=== PATIENT | male | born 1970 ===

== ENCOUNTER 2023-01-23 10:28 | Outpatient (OUT) | payer OTHER, SELFPAY | END 2023-01-23 10:29 | PROVIDERS: PCP Family Medicine; Visit Provider Surgery | DX: I87.311 Chronic venous hypertension (idiopathic) with ulcer of right lower extremity (principal); L97.811 Non-pressure chronic ulcer of other part of right lower leg limited to breakdown of skin | CPT/HCPCS: 29580 ==

== ENCOUNTER 2023-01-30 14:12 | Outpatient (OUT) | payer OTHER, SELFPAY | END 2023-01-30 14:13 | disposition home or self-care (01) | PROVIDERS: PCP Family Medicine; Visit Provider Surgery | DX: I87.311 Chronic venous hypertension (idiopathic) with ulcer of right lower extremity (principal); L97.811 Non-pressure chronic ulcer of other part of right lower leg limited to breakdown of skin; R60.0 Localized edema | CPT/HCPCS: 11042; 29580 ==

== ENCOUNTER 2023-02-06 08:31 | Outpatient (OUT) | payer OTHER, SELFPAY | END 2023-02-06 08:32 | LOC: WC 08:31 | PROVIDERS: PCP Family Medicine; Visit Provider Surgery | DX: I87.311 Chronic venous hypertension (idiopathic) with ulcer of right lower extremity (principal); L97.811 Non-pressure chronic ulcer of other part of right lower leg limited to breakdown of skin; R60.0 Localized edema | CPT/HCPCS: 29580 ==

== ENCOUNTER 2023-02-13 15:31 | Outpatient (OUT) | payer OTHER, SELFPAY | END 2023-02-13 15:32 | disposition home or self-care (01) | LOC: WC 15:32 | PROVIDERS: PCP Family Medicine; Visit Provider Surgery | DX: I87.311 Chronic venous hypertension (idiopathic) with ulcer of right lower extremity (principal); L97.811 Non-pressure chronic ulcer of other part of right lower leg limited to breakdown of skin; R60.0 Localized edema; N18.30 Chronic kidney disease, stage 3 unspecified; L81.9 Disorder of pigmentation, unspecified; I89.0 Lymphedema, not elsewhere classified; Z72.0 Tobacco use; I83.893 Varicose veins of bilateral lower extremities with other complications | CPT/HCPCS: 29580 ==

== ENCOUNTER 2023-02-20 13:34 | Outpatient (OUT) | payer OTHER, SELFPAY | END 2023-02-20 13:35 | disposition home or self-care (01) | LOC: WC 13:34 | PROVIDERS: PCP Family Medicine; Visit Provider Podiatrist Foot & Ankle Surgery | DX: I87.311 Chronic venous hypertension (idiopathic) with ulcer of right lower extremity (principal); L97.811 Non-pressure chronic ulcer of other part of right lower leg limited to breakdown of skin; R60.0 Localized edema; N18.30 Chronic kidney disease, stage 3 unspecified; L81.9 Disorder of pigmentation, unspecified; Z72.0 Tobacco use; I83.893 Varicose veins of bilateral lower extremities with other complications | CPT/HCPCS: 11042; 11045 ==

== ENCOUNTER 2023-02-27 14:12 | Outpatient (OUT) | payer OTHER, SELFPAY | END 2023-02-27 14:13 | disposition home or self-care (01) | LOC: WC 14:12 | PROVIDERS: PCP Family Medicine; Visit Provider Surgery | DX: R60.0 Localized edema (principal); I87.311 Chronic venous hypertension (idiopathic) with ulcer of right lower extremity; L97.811 Non-pressure chronic ulcer of other part of right lower leg limited to breakdown of skin | CPT/HCPCS: 29580; A6213 ==

== ENCOUNTER 2023-03-10 08:04 | Outpatient (OUT) | payer OTHER, SELFPAY | END 2023-03-10 08:05 | disposition home or self-care (01) | LOC: WC 08:05 | PROVIDERS: PCP Family Medicine; Visit Provider Surgery | DX: I87.311 Chronic venous hypertension (idiopathic) with ulcer of right lower extremity (principal); L97.811 Non-pressure chronic ulcer of other part of right lower leg limited to breakdown of skin; R60.0 Localized edema | CPT/HCPCS: 29580 ==

== ENCOUNTER 2023-03-17 08:16 | Outpatient (OUT) | payer OTHER, SELFPAY | END 2023-03-17 08:17 | disposition home or self-care (01) | LOC: WC 08:16 | PROVIDERS: PCP Family Medicine; Visit Provider Physician Assistant | DX: R60.0 Localized edema (principal); I87.311 Chronic venous hypertension (idiopathic) with ulcer of right lower extremity; L97.811 Non-pressure chronic ulcer of other part of right lower leg limited to breakdown of skin | CPT/HCPCS: 29580 ==

== ENCOUNTER 2024-07-06 10:03 | Outpatient (OUT) | payer OTHER, SELFPAY ==
--- NOTE | 2024-07-05 14:33 | V.VEINS.HP ---
Vital Signs 07/05/24 14:58 07/06/24 10:19 Height 6 ft 2 in Weight 192 kg BMI 54.3 BP 170/82 H BP Location Left Brachial BP Position Sitting BP Cuff Size Large Adult BP Source Automatic Cuff Respiration 22 H Pulse 60 Pulse Source Monitor Pulse Oximetry (%) 90 L Oxygen Delivery Method Room Air Comment The patient's blood pressure is elevated. Varicose Veins Patient is a 53 year old male in this day as a referral from [facility] secondary to slow healing bilateral leg ulcers. The ulcers occurred approximately a year ago and healed then reopened 2months ago. Patient currently achieves compression via bilateral leg unna boots. Patient states that he has experienced a spontaneous ulcer to right lower leg 6 years ago it took 5 years for the wound to finaly heal and it stayed healed for aproxmately 8 months then reopened 2 months ago and has not been able to close since then. Patient also had a wound to left lower leg spontaneous that comes and goes and is currently open for >2years. Patient has worn bilateral leg knee high compression stockings for >6 years. Currently patient is in uniboot for compression and wound care. Patient has had multiple vein procedures with Dr. Parker in [place], [place] which include failed laser of right GSV followed by successful glue procedure of right GSV along with injection sclerotherapy all to right leg. Patient has family history of varicose vein disease in maternal grandmother. Patient has history of P.E. Patient c/o bilateral leg pain, heaviness, and edema. Merrill Carter MD personally performed the services described in this documentation, as scribed by Jai Bo RN in my presence and it is both accurate and complete. Jai Carter RN, am scribing for, and in the presence of, Dr. Merrill Mims and in the presence of the patient. . thigh: bilateral (symptoms right leg > left leg), knee: bilateral, calf: bilateral, ankle: bilateral and granger: bilateral aching, burning, cramping and tender 4 >6 years Worsened in recent months: Yes standing elevating extremities, compression stockings, wraps and exercise Reports fatigue, heaviness, limb pain, edema and leg edema History of lower extremity trauma: No Superficial thrombophlebitis: Yes Family history of varicose veins: yes Has patient had previous lower extremity venous surgery: Yes Patient has previously received the following treatment(s) for lower extremity varicose veins: Reports vein ablation, foam therapy and laser therapy Does patient have a history of : not applicable Does patient intend to have future pregnancies: not applicable Has patient had lower extremity venous scan with relux testing: Yes Support hose used: Yes Problems walking or doing physical activity: Yes How does it affect you: can not walk any length of distance due to heaviness and pain Do you walk much: Yes Do you stand much: Yes Review of Systems ROS Status of ROS 10 or more systems reviewed and unremarkable except as noted in history and below Cardiovascular Reports: edema Integumentary/Breast Reports: itching, redness, skin pain, skin tenderness, skin swelling, non-healing lesion and changes in skin color Neurological Reports: weakness in extremities PFSH [facility] Medical History (Updated 07/06/24 @ 13:46 by Jai Bo) Varicose veins of bilateral lower extremities with pain ?I83.813 - Varicose veins of bilateral lower extremities with pain (ICD-10) Obesities, morbid ?E66.01 - Morbid (severe) obesity due to excess calories (ICD-10) Pulmonary emboli ?I26.99 - Other pulmonary embolism without acute cor pulmonale (ICD-10) Kidney failure ?N19 - Unspecified kidney failure (ICD-10) Hypertension ?I10 - Essential (primary) hypertension (ICD-10) Hyperlipidemia ?E78.5 - Hyperlipidemia, unspecified (ICD-10) Diabetes 1.5, managed as type 1 ?E13.9 - Other specified diabetes mellitus without complications (ICD-10) Lymphedema due to venous disease ?I89.0 - Lymphedema, not elsewhere classified (ICD-10) ?I99.9 - Unspecified disorder of circulatory system (ICD-10) Obesity ?E66.9 - Obesity, unspecified (ICD-10) Surgical History (Updated 07/05/24 @ 14:39 by Jai Bo) History of appendectomy ?Z90.49 - Acquired absence of other specified parts of digestive tract (ICD-10) H/O hernia repair ?Z98.890 - Other specified postprocedural states (ICD-10) ?Z87.19 - Personal history of other diseases of the digestive system (ICD-10) Family History (Updated 07/06/24 @ 10:45 by Jai Bo) Other Family history of cancer Heart disease Pain due to varicose veins of both lower extremities Meds Home Medications and Allergies Home Medications ?Medication ?Instructions ?Recorded ?Confirmed ?Type apixaban 5 mg tablet (Eliquis) 5 mg PO BID 07/05/24 07/05/24 History atorvastatin 10 mg tablet 10 mg PO DAILY 07/05/24 07/05/24 History bumetanide 1 mg tablet 1 mg PO DAILY 07/05/24 07/05/24 History cyclobenzaprine 10 mg tablet 10 mg PO TID 07/05/24 07/05/24 History gabapentin 400 mg capsule 400 mg PO TID 07/05/24 07/05/24 History lisdexamfetamine 70 mg capsule 70 mg PO DAILY 07/05/24 07/05/24 History metolazone 5 mg tablet 5 mg PO DAILY 07/05/24 07/05/24 History metoprolol tartrate 50 mg tablet 50 mg PO BID 07/05/24 07/05/24 History (Lopressor) Allergies Allergy/AdvReac Type Severity Reaction Status Date / Time metformin Allergy Intermediate Dizziness Verified 07/05/24 14:44 Exam Narrative Exam Narrative: Merrill Carter MD personally performed the services described in this documentation, as scribed by Jai Bo RN in my presence and it is both accurate and complete. Jai Carter RN, am scribing for, and in the presence of, Dr. Merrill Mims and in the presence of the patient. Constitutional Documenting provider has reviewed patient's vital signs: yes Common normals: oriented x3 Nutritional appearance: overweight Cardio Peripheral pulses: posterior tibial pulses present and dorsalis pedis pulses present Extremity Common normals: normal capillary refill General: calf tenderness and edema Right lower extremity: lower leg Right lower leg: inspection and palpation Left lower extremity: lower leg Left lower leg: inspection and palpation Neuro Common normals: oriented x3 Results Additional Findings Additional findings: Bilateral leg reflux u/s reveals incompetent bilateral great and anterior accessory saphenous veins along with left small saphenous vein and right perforating vein with associated dilation and lastly bilateral leg branch saphenous truncal tributary varicosites. Merrill Carter MD personally performed the services described in this documentation, as scribed by Jai Bo RN in my presence and it is both accurate and complete. Jai Carter RN, am scribing for, and in the presence of, Dr. Merrill Mims and in the presence of the patient. Assessment and Plan Assessment and Plan (1) Varicose veins of bilateral lower extremities with pain: Plan Plan is for patient to continue use of bilateral leg compression, rest, elevate bilateral legs/feet. Smoking cessation. Patient to return for EVLTs of bilateral GSV, AAS, along with right SSV and peroforating veins. Once EVLT's complete, move forward with microfoam chemical ablation bilateral leg branch saphenous, truncal, tributary veins. I, Merrill Mims MD personally performed the services described in this documentation, as scribed by Jai Bo RN in my presence and it is both accurate and complete. I, Jai Bo RN, am scribing for, and in the presence of, Dr. Merrill Mims and in the presence of the patient.
[2024-07-05 14:58] VITALS: BMI 54.3
--- NOTE | 2024-07-05 14:59 | P.DS_ITS ---
Discharge Plan Discharge Disposition: Home, Self-Care Outpatient Diagnostics: VC Endovenous Ablation 1VeinRT (Routine) Timeframe: 2 Weeks Facility: [facility] - Location: [facility] Ordered By: Merrill Mims Plan of Treatment: EVLT of right GSV Patient Instructions: Endovenous Ablation (GEN) Print Language: Yoruba Discharge Date/Time: 07/06/24 13:47
[2024-07-06 10:19] VITALS: BP 170/82; PULSE 60; O2SAT 90
--- NOTE | 2024-07-06 10:24 | VEIN_ITS ---
Patient Name: YAMILE BARBA MR#: [id number] : 1970 Exam Date: 07/06/2024 Ordering Doctor: DR MERRILL MIMS M.D. RADIOLOGY REPORT PROCEDURE: [facility] - OFFICE VISIT INITIAL COMPARISON: None. PROGRESS NOTES: 53-year-old male who is referred by the [facility] secondary to nonhealing ulcerations for approximately 6 years. The patient has intermittent healing but the current wounds are proximally 2 to 3-month-old and closure has not occurred. The patient has had multiple treatments in the last by vascular surgery in [place]. He did not complete his treatments previously due to insurance issues. 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 The patient has worn compression wraps for many years. The patient has no significant relief with leg elevation and is unable to exercise due to morbid obesity and condition of his feet and legs. The patient denies any signs and symptoms to suggest arterial ischemia. The patient describes a family history of cancer, heart disease and varicose veins. Past surgical history significant for appendectomy and hernia repair. Medical history significant for morbid obesity, pulmonary embolus, kidney failure, hypertension, hyperlipidemia, diabetes and lymphedema. No history of deep vein thrombus. See separate history and physical for medication list. After review of nurse notes, history and physical exam I discussed at length the pathophysiology of venous hypertension and possible treatments, therapies and strategies available. We discussed at length the importance of elevating the lower extremities above the level of the heart, increased physical activity and compression stocking use. I recommended the patient that he start treatments immediately. We discussed intravenous laser ablation, micro foam chemical ablation and injection sclerotherapy at length. Risks benefits and alternatives were discussed with the patient and all his questions were answered. Ultrasound venous reflux study performed same day was discussed at length with the patient. The report demonstrates severe bilateral great saphenous veins insufficiency with dilatation saphenofemoral junction reflux. Severe right and moderate left small saphenous vein venous insufficiency with dilatation and saphenopopliteal junction reflux. Moderate bilateral anterior accessory saphenous vein venous insufficiency with dilatation. Bilateral incompetent perforating veins with associated wounds. Bilateral incompetent varicose veins measuring up to 10.7 mm PHYSICAL EXAM: The right leg demonstrates extensive varicose reticular and spider veins throughout the leg ankle foot and toes. Marked skin thickening erythema and hemosiderin staining below the knee. Extensive ulcerations below the including the ankle and top of the 2nd and 3rd toes The left leg demonstrates extensive varicose, reticular and spider veins throughout the leg, ankle, foot and toes. Marked skin thickening erythema in hemosiderin staining. Several small ulcerations. Both thighs, legs and feet were symmetrically warm to the touch. posterior tibial and dorsalis pedis pulses be palpated. VEIN/VC Facility EST Comprehensive IMPRESSION: 1. Diffuse bilateral great, anterior accessory and small saphenous vein venous insufficiency with dilatation 2. Extensive bilateral lower extremity varicose veins 3. Extensive bilateral lower extremity subcutaneous edema 4. Indeterminate flow significant arterial disease 5. CEAP: C6, Ep, Asp, Pr PLAN: 1. Endovenous laser ablation of the right great saphenous vein followed by right perforating veins followed by right small saphenous vein followed by left great saphenous vein followed by left small saphenous vein followed by right anterior accessory saphenous vein followed by left anterior accessory saphenous vein 2. Micro foam chemical ablation bilateral incompetent varicose veins 3. Long-term use of bilateral compression wraps 4. Weight loss 5. Leg elevation and increased physical activity Nurse notes, history and physical were reviewed and confirmed, see attached forms. The nurse was present throughout the physical exam and consultation Dictated by: Merrill Mims MD on 07/06/2024 at 12:05 Approved by: Merrill Mims MD on 07/06/2024 at 13:08
--- NOTE | 2024-07-06 10:24 | VEIN_ITS ---
Patient Name: YAMILE BARBA MR#: [id number] : 1970 Exam Date: 07/06/2024 Ordering Doctor: DR MERRILL MIMS M.D. RADIOLOGY REPORT PROCEDURE: VC EXT VENOUS REFLUX LETICIA LMTD COMPARISON: None. INDICATIONS: I83.813 Bilateral painful varicose veins TECHNIQUE: Duplex imaging of the lower extremity to assess the deep and superficial venous system for the presence of deep or superficial venous incompetence and to document the location and severity of disease. The study includes evaluation of the great saphenous vein (GSV), anterior accessory saphenous vein (AASV) and small saphenous vein (SSV). Patient scanned in reverse Trendelenburg and standing. FINDINGS: RIGHT LOWER EXTREMITY: Saphenofemoral Junction Reflux: Yes 17.6mm 3.9 sec GSV: Diam (mm) Reflux/ Time (sec) Proximal Thigh 13.5 Yes 3.6 Mid Thigh 12.7 Yes 3.2 Distal Thigh N/A Prox Calf N/A Mid Calf 7.5 Yes 2.8 Saphenopopliteal Junction Reflux: 9.1mm Yes 2.0 SSV: Proximal Calf 6.9 Yes 2.5 Mid Calf 8.7 Yes 3.1 AASV: Proximal Thigh 7.1 Yes 1.5 Mid Thigh 5.3 Yes 1.6 Distal Thigh Thrombi: No acute or chronic thrombus visualized Compressibility: Normal Flow: Normal Preforator: Dist/med calf 10.4mm with 2.0s reflux. Mid/med calf 5.2mm with 1.6s reflux. Tech Note: Incompetent GSV, AASV, and SSV. Distal thigh GSV to mid calf GSV treated with glue therapy. Patent varicose vein mid/med calf 10.7mm with 1.9s reflux. Patent varicose vein prox/med calf 8.1mm with 1.3s reflux. Patent varicose vein mid/med thigh 10.7mm with 2.5s reflux. 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 Tech Note: Incompetent GSV, AASV, and SSV. Patent varicose vein prox/med calf 7.8mm with 2.0s reflux. Patent varicose vein medial knee 6.5mm with 2.6s reflux. Patent varicose vein mid/med thigh 6.7mm with 1.9s reflux. CONCLUSION: 1. Severe bilateral great saphenous vein venous insufficiency with dilatation and saphenofemoral junction reflux 2. Severe right and moderate left small saphenous vein venous insufficiency with dilatation of the saphenous popliteal junction reflux 3. Moderate bilateral anterior accessory saphenous vein venous insufficiency with dilatation 4. Bilateral incompetent perforating veins 5. Bilateral incompetent varicose veins measuring up to 10.7 mm Dictated by: Merrill Mims MD on 07/06/2024 at 11:40 Approved by: Merrill Mims MD on 07/06/2024 at 11:43
== END 2024-07-06 13:47 | disposition home or self-care (01) ==
LOC: VC 10:03
PROVIDERS: PCP Radiology Diagnostic Radiology; Visit Provider Radiology Diagnostic Radiology
DX: I83.813 Varicose veins of bilateral lower extremities with pain (principal)
CPT/HCPCS: 93970; G0463